=== PATIENT | female | born 1975 ===

== ENCOUNTER 2018-10-29 13:11 | Emergency (ER) | payer OTHER ==
[~2018-10-29] VITALS: Ht 167.6 cm; Wt 59.0 kg
[~2018-10-29 13:11] MED LIST: PEPCID40 MG PO; PROTONIX40 M1 PO
[2018-10-29] MEDS ORDERED: PRILOSEC10 MG PO (16:56)
[2018-10-29] MEDS ORDERED: ZANTAC 7575 MG PO (16:56)
== END 2018-10-29 17:05 | disposition home or self-care (01) ==
LOC: ER 13:11
DX: K29.60 Other gastritis without bleeding (principal); R10.13 Epigastric pain

== ENCOUNTER 2018-10-29 20:31 | Emergency (ER) | payer OTHER ==
[~2018-10-29] VITALS: Ht 167.6 cm; Wt 61.2 kg
[~2018-10-29 20:31] MED LIST changes: +PRILOSEC10 MG PO; +ZANTAC 7575 MG PO
== END 2018-10-30 00:26 | disposition home or self-care (01) ==
LOC: ER 20:31
DX: K25.9 Gastric ulcer, unspecified as acute or chronic, without hemorrhage or perforation (principal); R10.13 Epigastric pain

== ENCOUNTER 2021-04-05 21:34 | Emergency (ER) | payer OTHER ==
[~2021-04-05] VITALS: Ht 167.6 cm; Wt 57.6 kg
== END 2021-04-05 22:40 | disposition home or self-care (01) ==
LOC: ER 21:34
DX: M75.52 Bursitis of left shoulder (principal); Z72.0 Tobacco use